=== PATIENT | female | born 1985 | race Caucasian/White ===

== ENCOUNTER 2017-10-05 15:17 | Emergency (ER) | payer SELFPAY ==
[2017-10-05] MEDS ORDERED: SODIUM CHLORIDE 0.9% (FLUSH) 10 ML SYG IV PRN (15:39)
[2017-10-05] MEDS ORDERED: SODIUM CHLORIDE 0.9% 1000ML 1,000 ML IVS ONE ×2 (15:39→16:39)
[2017-10-05] MEDS ORDERED: ACETAMINOPHEN SUPPOSITORY 325 MG PR ONE (15:41)
[2017-10-05] MEDS ORDERED: ACETAMINOPHEN SUPPOSITORY 650 MG PR ONE (15:41)
[2017-10-05] MEDS ORDERED: CEFEPIME 2 GM in SODIUM CHL 0.9% 50ML MIN-BAG+ 50 ML IVPB ONE (15:42)
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
[2017-10-05] MEDS ORDERED: SODIUM CHL 0.9% 50ML MIN-BAG+ 50 ML IVPB ONE (16:14)
[2017-10-05] MEDS ORDERED: CEFEPIME 2 GM VIAL IVPB ONE (16:14)
--- NOTE | 2017-10-05 16:38 | RAD ---
EXAM DESCRIPTION: Chest,1 View CLINICAL HISTORY: 32 years Female, FEVER, AMS COMPARISON: None. TECHNIQUE: AP view portable FINDINGS: Cardiac silhouette is mildly enlarged. Mediastinum is within normal limits. No infiltrates. No pleural effusions. Intact bony thorax. IMPRESSION: No infiltrates Electronically signed by: Adam Sheppard 10/05/2017 4:38 PM [facility]
[2017-10-05] MEDS ORDERED: METOPROLOL TARTRATE INJ 5 MG/5 ML VIAL IV ONE (16:40)
--- NOTE | 2017-10-05 17:18 | CT ---
EXAM DESCRIPTION: Cervical Spine CLINICAL HISTORY: 32 years Female, TRAUMA COMPARISON: None. TECHNIQUE: Axial imaging. No IV contrast. Sagittal and coronal reconstruction FINDINGS: Odontoid is intact. Dextro cervical scoliosis. Cervical vertebrae and disc spaces are intact. No fractures. No offset. Normal facet alignment. Loss of lordosis may be positional in nature or related to muscle spasm. Small mucous retention cyst incidentally noted within the left inferior maxillary sinus antrum. IMPRESSION: No fractures. Incidental findings as noted above Electronically signed by: Adam Sheppard 10/05/2017 5:17 PM [facility]
--- NOTE | 2017-10-05 17:21 | CT ---
EXAM DESCRIPTION: Head CLINICAL HISTORY: 32 years Female, AMS, HEAD INJURY COMPARISON: None. TECHNIQUE: Axial imaging. No IV contrast. Sagittal and coronal reconstruction FINDINGS: Ventricular system is within normal limits. No intracranial attenuation abnormalities are evident. No mass lesions or signs of hemorrhage. IMPRESSION: Negative noncontrast head computed tomography. No evidence of intracranial hemorrhage. This exam was performed according to our departmental dose-optimization program, which includes automated exposure control, adjustment of the mA and/or kV according to patient size and/or use of iterative reconstruction technique. Electronically signed by: Adam Sheppard 10/05/2017 5:20 PM [facility]
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
[2017-10-05 18:44] VITALS: BP 121/82; TEMP 103.7; O2SAT 99
== END 2017-10-05 18:50 | disposition short-term general hospital (02) ==
LOC: ER 15:17
DX: A41.9 Sepsis, unspecified organism (principal); I48.91 Unspecified atrial fibrillation; R41.82 Altered mental status, unspecified; M62.82 Rhabdomyolysis; E86.0 Dehydration; R79.89 Other specified abnormal findings of blood chemistry; E07.9 Disorder of thyroid, unspecified; F15.10 Other stimulant abuse, uncomplicated; Z87.891 Personal history of nicotine dependence
CPT/HCPCS: 36415; 36600; 70450; 70486; 71010; 72125; 80053; 80307; 80320; 81001; 82550; 82553; 82803; 82805; 83605; 84484; 84703; 85025; 85610; 85730; 87040; 87086; 87502; 93005; 94760; J0692; J7030; J7050